=== PATIENT | female | born 1985 | race Caucasian/White ===

== ENCOUNTER 2024-05-18 21:38 | Emergency (ER) | payer OTHER ==
[2024-05-18] MEDS: Proparacaine 0.5% Ophth Soln 15 ML Bottle EYERT ONE (22:57)
[2024-05-18] MEDS: Dexamethasone/Tobramycin 0.1-0.3% Ophth Susp 2.5 ML Bottle EYERT SCH (22:58)
== END 2024-05-18 23:13 ==
LOC: JP.ED 21:38
DX: H16.001 Unspecified corneal ulcer, right eye (principal)
CPT/HCPCS: 99283; A9270